=== PATIENT | female | born 1950 | race Caucasian/White ===

== ENCOUNTER 2017-08-15 21:07 | Emergency (ER) | payer OTHER ==
[2017-08-15] MEDS ORDERED: MORPHINE SULFATE 10 MG/ML INJ IV PRN (21:18)
[2017-08-15] MEDS ORDERED: KETOROLAC TROMETHAMINE INJ/PF 30 MG/1 ML SDV IV ONE (21:18)
[2017-08-15] MEDS ORDERED: ONDANSETRON HCL INJ/PF 4 MG/2 ML SDV IV ONE (21:37)
[2017-08-15] MEDS ORDERED: KETAMINE HCL INJ 500 MG/10 ML VIAL IV ONE (21:37)
--- NOTE | 2017-08-15 21:49 | ER Document Report ---
ED General - General Chief Complaint: Ankle Injury Stated Complaint: FALL Time Seen by Provider: 08/15/17 21:18 Notes: Patient is a 66-year-old female with medical history as recorded who presents with a left ankle injury. Patient reports that this occurred when she was stepping down several steps, tripped and fell rolling her left ankle. She states that since that time she has had a severe, constant, throbbing pain to the left ankle. Any attempt at moving the ankle worsens the pain. Nothing improves the pain. She has no prior history of injury to this ankle. She denies any additional injuries today. Specifically no head or neck trauma. She is visiting from [place]. TRAVEL OUTSIDE OF THE [place] IN LAST 30 DAYS: No - Related Data Allergies/Adverse Reactions: No Known Allergies Allergy (Unverified 08/15/17 21:15) Past Medical History - General Information source: Patient - Social History Smoking Status: Never Smoker Chew tobacco use (# tins/day): No Frequency of alcohol use: Social Drug Abuse: None Lives with: Family Family History: Reviewed & Not Pertinent Patient has suicidal ideation: No Patient has homicidal ideation: No Renal/ Medical History: Denies: Hx Peritoneal Dialysis Review of Systems - Review of Systems Notes: Constitutional: Negative for fever. Eyes: Negative for visual changes. ENT: Negative for facial injury Cardiovascular: Negative for chest injury. Respiratory: Negative for shortness of breath. Gastrointestinal: Negative for abdominal injury. Genitourinary: Negative for genital injury Musculoskeletal: Positive for left ankle injury Skin: Negative for laceration/abrasions. Neurological: Negative for head injury. Physical Exam - Vital signs Vitals: Temp Pulse Resp BP Pulse Ox 98.2 F 88 20 120/65 97 08/15/17 21:14 08/15/17 21:14 08/15/17 21:14 08/15/17 21:14 08/15/17 21:14 Interpretation: Normal Notes: PHYSICAL EXAMINATION: GENERAL: Appears uncomfortable and in pain HEAD: Atraumatic, normocephalic. EYES: Pupils equal round and reactive to light, extraocular movements intact, sclera anicteric, conjunctiva are normal. ENT: nares patent, oropharynx clear without exudates. Moist mucous membranes. NECK: Normal range of motion, supple without lymphadenopathy LUNGS: Breath sounds clear to auscultation bilaterally and equal. No wheezes rales or rhonchi. HEART: Regular rate and rhythm without murmurs ABDOMEN: Soft, nontender, normoactive bowel sounds. No guarding, no rebound. No masses appreciated. EXTREMITIES: Obvious deformity of the left ankle with nonanatomic alignment of the foot to the ankle. There is a diminished DP pulse on the left. There is extensive bruising over the medial malleolus on the left. No pain on rocking compression of the more proximal tib-fib. No pain with range of motion of the left knee or palpation of the femur on the left. NEUROLOGICAL: No focal neurological deficits. Moves all extremities spontaneously and on command. PSYCH: Moderately anxious SKIN: Warm, Dry, normal turgor, no rashes or lesions noted. Course - Re-evaluation Re-evalutation: 08/15/17 21:48 Patient presents with a distal tibiofibular fracture with obvious joint instability. There is no associated dislocation. Patient is in significant pain and any attempt at moving the ankle dramatically worsens her pain. I therefore will proceed with procedural sedation using ketamine to achieve appropriate anatomic alignment and allow placement of a long-leg posterior splint with a support U. She has no additional injuries or concerns. No other areas of pain. 08/15/17 22:39 Ankle was placed in appropriate anatomic position and splint was placed with support. Ketamine sedation was provided as patient was having exquisite pain even with any gentle movement of the ankle. Unfortunately during sedation patient did have laryngeal spasm. This was managed using bag valve mask and an oropharyngeal airway placement. Patient had a brief period of hypoxia the lowest reading of which was 28% that lasted for approximately 10 seconds. Patient then rapidly had normalization of her pulse oximetry. She has maintained oxygen saturations above 99% on nasal cannula at this time. She is coming out of the sedation as expected. This complication was immediately discussed with family. 08/16/17 0010 Patient has returned to baseline, laughing and joking with me at this time. I have again disclosed the patient now that she is awake and no longer under the influence of ketamine that she had laryngeal spasm under the influence of ketamine and should not likely receive this medication again for any form of sedation or anesthesia. Her pain in her ankle has completely resolved. Strong 2+ DP pulses present. At this time will discharge with return precautions and follow-up recommendations. Verbal discharge instructions given a the bedside and opportunity for questions given. Medication warnings reviewed. Patient is in agreement with this plan and has verbalized understanding of return precautions and the need for orthopedic surgery follow-up in the next 24-72 hours. - Vital Signs Vital signs: Temp Pulse Resp BP Pulse Ox 98.2 F 90 12 102/67 90 L 08/15/17 21:14 08/15/17 22:15 08/16/17 00:07 08/16/17 00:07 08/16/17 00:07 - Laboratory Result Diagrams: 08/15/17 21:45 08/15/17 21:45 Laboratory results interpreted by me: 08/15/17 08/15/17 21:45 21:45 MCV 98 H Glucose 124 H - Diagnostic Test Radiology reviewed: Image reviewed, Reports reviewed Radiology results interpreted by me: 08/15/17 22:47 Left ankle x-ray: Distal tib-fib fracture Procedures - Conscious Sedation Conscious sedation Time started: 22:20 Time completed: 22:36 Consent obtained: Yes Indication: Splint placement, fracture reduction Prior complications: Procedural sedation Normal healthy pt.: P1. - ASA Classification Airway Evaluation: Normal anatomy Mallampati Classification: Class 1 Used during procedure: Suction available, IV access obtained, Pulse ox on pt., teller on pt. Medications administered: Ketamine Reversal agents: None I personally performed/intraservice time: Sedation, Procedure, 30 min or less Complications: Yes - Laryngeal spasm with ketamine, brief period of hypoxia, - Immobilization Left Ankle Immobilizer type: Long leg posterior Performed by: Provider assisted Post-Proc Neuro Vasc Exam: Normal Alignment checked and good: Yes - Joint Reduction/Fracture Care Left Ankle Time completed: 22:36 Consent obtained: Yes Conscious sedation: Yes Pre-procedure NV exam: Yes Fracture: Closed Manipulation comment: Downward traction medial rotation Post-procedure NV exam: Yes Post-reduction x-ray: Joint reduced Reduction attempts: 1 Complications: No Discharge - Discharge Clinical Impression: lewis A ankle fracture Closed left ankle fracture Qualifiers: Encounter type: initial encounter Qualified Code(s): S82.892A - Other fracture of left lower leg, initial encounter for closed fracture Condition: Good Disposition: HOME, SELF-CARE Additional Instructions: You have an ankle fracture on the left side. You need to follow-up with orthopedic surgery for further evaluation of this fracture. Please keep the splint in place until you are evaluated by orthopedic surgery. Do not bear weight on the ankle. Use the crutches that have been prescribed. For your pain : Take ibuprofen 600 mg and acetaminophen 1000 mg every 6 hours together as needed for pain. If this does not control your pain you may take 15 mg of oral morphine every 4 hours as needed. Please be very careful about using the oral morphine and only use this for severe pain. Prescriptions: Morphine Sulfate [Morphine Ir 15 mg Tablet] 15 mg PO Q4HP PRN #12 tablet PRN Reason: Referrals: ALEA SUAREZ MD [ACTIVE STAFF] - Follow up in 3-5 days
[2017-08-15 22:07] LABS: ABSOLUTE EOSINOPHILS # (AUTO) 0.1 10^3/uL (0.0-0.6); ABSOLUTE LYMPHOCYTES (AUTO) 2.3 10^3/uL (0.5-4.7); ABSOLUTE MONOCYTES (AUTO) 0.5 10^3/uL (0.1-1.4); ABSOLUTE NEUT (AUTO) 3.9 10^3/uL (1.7-8.2); BASOPHILS % (AUTO) 0.6 % (0-2); EOSINOPHILS % (AUTO) 1.6 % (0-6); HEMATOCRIT 38.8 % (36.0-47.0); HEMOGLOBIN 13.1 g/dL (12.0-15.5); LYMPHOCYTES % (AUTO) 33.5 % (13-45); MEAN CORPUSCULAR HEMOGLOBIN 33.1 pg (27.0-33.4); MEAN CORPUSCULAR HGB CONC 33.8 g/dL (32.0-36.0); MEAN CORPUSCULAR VOLUME 98 fl (80-97); MONOCYTES % (AUTO) 7.3 % (3-13); PLATELET COUNT 311 10^3/uL (150-450); RED BLOOD COUNT 3.97 10^6/uL (3.72-5.28); RED CELL DISTRIBUTION WIDTH 13.4 % (11.5-14.0); TOTAL CELLS COUNTED % (AUTO) 100 %; WHITE BLOOD COUNT 6.9 10^3/uL (4.0-10.5)
--- NOTE | 2017-08-15 22:12 | RADIOLOGY REPORT (SQ) ---
EXAM DESCRIPTION: ANKLE LEFT COMPLETE COMPLETED DATE/TIME: 08/15/2017 9:53 pm REASON FOR STUDY: fall, ankle pain COMPARISON: None. NUMBER OF VIEWS: Three views. TECHNIQUE: AP, lateral, and oblique radiographic images acquired of the left ankle. LIMITATIONS: None. FINDINGS: MINERALIZATION: Normal. BONES: Moderately displaced fractures are seen of the medial and lateral malleoli. JOINTS: No effusions. SOFT TISSUES: Trace soft tissue swelling. OTHER: No other significant finding. IMPRESSION: Lee A fracture of the ankle. TECHNICAL DOCUMENTATION: JOB ID: [id number]- All Rights Reserved Reading location - IP/workstation name: [email or web address]
[2017-08-15 22:27] LABS: ANION GAP 14 (5-19); BLOOD UREA NITROGEN 12 mg/dL (7-20); CALCIUM 10.1 mg/dL (8.4-10.2); CARBON DIOXIDE 28 mmol/L (22-30); CHLORIDE 103 mmol/L (98-107); GLUCOSE 124 mg/dL (75-110); POTASSIUM 4.8 mmol/L (3.6-5.0)
[2017-08-15] MEDS ORDERED: HYDROCODONE/ACETAMINOPHEN 5-325 MG (6 TAB/ER DISP) PO PRN (22:45)
[2017-08-15] MEDS ORDERED: ONDANSETRON ODT 4 MG TAB (6 TAB/ER DISP) PO PRN (22:45)
[2017-08-16 00:25] VITALS: BP 102/67
== END 2017-08-16 00:31 | disposition home or self-care (01) ==
LOC: ER 21:07
DX: S82.842A Displaced bimalleolar fracture of left lower leg, initial encounter for closed fracture (principal); W10.9XXA Fall (on) (from) unspecified stairs and steps, initial encounter; R09.02 Hypoxemia; J38.5 Laryngeal spasm; T41.295A Adverse effect of other general anesthetics, initial encounter; Y92.238 Other place in hospital as the place of occurrence of the external cause
CPT/HCPCS: 99284; 99152; 96374; 96375; 36415; 85025; 80048; 73610; 27810; J3490; J1885; J2270; J2405